=== PATIENT | male | born 1995 | race American Indian/Alaskan Native ===

== ENCOUNTER 2018-04-05 21:47 | Emergency (ER) | payer SELFPAY ==
[2018-04-05 22:44] VITALS: BP 106/64
[2018-04-05] MEDS ORDERED: TYLENOL ONE (23:08)
[2018-04-05] MEDS ORDERED: TYLENOL PO ONE (23:12)
== END 2018-04-06 01:25 | disposition left against medical advice (07) ==
LOC: ED 21:47
DX: M54.5 Low back pain (principal); Z53.21 Procedure and treatment not carried out due to patient leaving prior to being seen by health care provider

== ENCOUNTER 2018-04-06 19:19 | Emergency (ER) | payer OTHER ==
[2018-04-06] MEDS ORDERED: TORADOL IM ONE (21:29)
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
[2018-04-06 22:10] VITALS: BP 116/72
== END 2018-04-06 22:09 | disposition home or self-care (01) ==
LOC: ED 19:19
DX: S16.1XXA Strain of muscle, fascia and tendon at neck level, initial encounter (principal); S39.012A Strain of muscle, fascia and tendon of lower back, initial encounter; J45.909 Unspecified asthma, uncomplicated; Z90.49 Acquired absence of other specified parts of digestive tract; V43.52XA Car driver injured in collision with other type car in traffic accident, initial encounter; Y93.89 Activity, other specified; Y92.89 Other specified places as the place of occurrence of the external cause; Y99.8 Other external cause status
CPT/HCPCS: 96372; 99282; J1885